=== PATIENT | male | born 1955 | race Caucasian/White ===

== ENCOUNTER 2019-11-11 22:09 | Emergency (ER) | payer MEDICARE, OTHER ==
[~2019-11-11] VITALS: Ht 172.7 cm; Wt 97.7 kg
[2019-11-11 22:10] VITALS: BP 144/97
[2019-11-11] MEDS ORDERED: TAMS1CAP17 (22:24)
[2019-11-11] MEDS ORDERED: OXYC1TAB23 (22:24)
[2019-11-11] MEDS ORDERED: METO1TAB32 (22:24)
[2019-11-11] MEDS ORDERED: ATOR1TAB21 (22:24)
[2019-11-11] MEDS ORDERED: TAMSULOSIN 0.4 MG CAP PO ONE (22:30)
[2019-11-11] MEDS ORDERED: MORPHINE 10 MG/ML 1ML VIAL (J2270) IV ONE (22:30)
[2019-11-11] MEDS ORDERED: NS 1,000 ML IV ONE (22:30)
[2019-11-11 23:00] LABS: BASO % 0.3 % (0.0-1.0); EOS # 0.2 10^3/uL (0.0-0.5); EOS % 1.5 % (0.0-3.0); HEMOGLOBIN 14.8 g/dl (13.5-17.5); LYMPH # 1.2 10^3/uL (1.5-5.0); LYMPH % 9.3 % (24.0-44.0); MEAN CORPUSCULAR HEMOGLOBIN 30.4 pg (27.0-33.0); MEAN CORPUSCULAR HGB CONC 33.6 g/dl (32.0-36.5); MEAN CORPUSCULAR VOLUME 90.3 fl (80.0-96.0); MONO # 0.9 10^3/uL (0.0-0.8); MONO % 7.5 % (0.0-5.0); NEUTROPHILS % 81.1 % (36.0-66.0); PLATELET COUNT, AUTOMATED 291 10^3/uL (150-450); RED BLOOD COUNT 4.87 10^6/uL (4.30-6.10); WHITE BLOOD COUNT 12.3 10^3/uL (4.0-10.0)
[2019-11-11 23:22] LABS: BLOOD UREA NITROGEN 22 MG/DL (7-18); CARBON DIOXIDE LEVEL 25 MEQ/L (21-32); CHLORIDE LEVEL 107 MEQ/L (98-107); CREATININE FOR GFR 1.26 MG/DL (0.70-1.30); GLOMERULAR FILTRATION RATE > 60.0 (>49); GLUCOSE, FASTING 107 MG/DL (70-100); POTASSIUM SERUM 4.1 MEQ/L (3.5-5.1); SODIUM LEVEL 140 MEQ/L (136-145)
[2019-11-12] MEDS ORDERED: KETOROLAC 30 MG/ML 1ML VIAL IV ONE (00:15)
[2019-11-12 01:16] LABS: APPEARANCE, URINE CLEAR (CLEAR); BACTERIA, URINE AUTO NEGATIVE (NEGATIVE); BILIRUBIN, URINE AUTO NEGATIVE (NEGATIVE); BLOOD, URINE BLOOD 1+ (NEGATIVE); COLOR, URINE YELLOW (YELLOW); GLUCOSE, URINE (UA) AUTO NEGATIVE (NEGATIVE); KETONE, URINE AUTO NEGATIVE (NEGATIVE); LEUKOCYTE ESTERASE, URINE AUTO NEGATIVE (NEGATIVE); MUCUS, URINE SMALL (NEGATIVE); NITRITE, URINE AUTO NEGATIVE (NEGATIVE); PROTEIN, URINE AUTO NEGATIVE (NEGATIVE); RBC, URINE AUTO 2 /HPF (0-3); SPECIFIC GRAVITY URINE AUTO 1.024 (1.002-1.035); SQUAMOUS EPITHELIAL CELL UR AU 0 /HPF (0-6); UROBILINOGEN, URINE AUTO 0.2 mg/dL (0.0-2.0); WBC, URINE AUTO 1 /HPF (0-3)
[2019-11-12] MEDS ORDERED: KETO10TAB PO (01:53)
--- NOTE | 2019-11-12 08:30 | REP ---
Clinical: Right renal colic. Technique: Axial noncontrast images from the lung bases to the pubic symphysis with coronal and sagittal re-formations. Findings: Mild/moderate acute right-sided obstructive uropathy with perinephric stranding, edematous enlargement to the right kidney, and hydroureteronephrosis secondary to a 4 mm obstructing calculus in the distal right ureter approaching the ureterovesical junction (images 117 - 118). Small bilateral nonobstructing intrarenal calculi are also noted measuring up to approximately 3 mm. Liver, spleen, pancreas, gallbladder, and bilateral adrenal glands are normal. The enteric system is without obstruction or acute inflammatory process. Pelvis demonstrates relatively normal bladder and age appropriate prostate/seminal vesicles. No ascites. No free air. No adenopathy. Abdominal aorta without aneurysm. Musculoskeletal structures demonstrate degenerative changes. Lung bases are clear. Impression: Acute mild/moderate right-sided obstructive uropathy with a 4 mm obstructing calculus in the distal right ureter. Small bilateral nonobstructing nephroliths up to 3 mm noted. Electronically Signed by Jacob Trinidad MD 11/12/2019 08:21 A
== END 2019-11-12 02:16 | disposition home or self-care (01) ==
LOC: M ED 22:09
DX: N20.1 Calculus of ureter (principal)
CPT/HCPCS: 74176; 80048; 81001; 85025; 96361; 96374; 96375; 99283; J1885; J2270